=== PATIENT | female | born 1970 | race Caucasian/White ===

== ENCOUNTER → 2023-09-27 11:19 | Outpatient (REF) | payer OTHER, SELFPAY | LOC: WDC 11:19 | PROVIDERS: ATTENDING PHYSICIAN Obstetrics & Gynecology; FAMILY PHYSICIAN Family Medicine | DX: Z12.31 Encounter for screening mammogram for malignant neoplasm of breast (principal) | CPT/HCPCS: 77063; 77067 ==

== ENCOUNTER → 2024-09-27 13:07 | Outpatient (REF) | payer OTHER, SELFPAY | LOC: WDC 13:07 | PROVIDERS: ATTENDING PHYSICIAN Obstetrics & Gynecology; FAMILY PHYSICIAN Family Medicine | DX: Z12.31 Encounter for screening mammogram for malignant neoplasm of breast (principal) | CPT/HCPCS: 77063; 77067 ==

== ENCOUNTER → 2025-01-16 10:00 | Outpatient (REF) | payer OTHER, SELFPAY | LOC: WDC 10:00 | PROVIDERS: ATTENDING PHYSICIAN Obstetrics & Gynecology; FAMILY PHYSICIAN Family Medicine | DX: R92.2 Inconclusive mammogram (principal); R92.333 Mammographic heterogeneous density, bilateral breasts | CPT/HCPCS: 76641 ==